=== PATIENT | female | born 1995 | race Caucasian/White ===

== ENCOUNTER → 2020-07-20 14:33 | Outpatient (BNVA) | payer MEDICAID, SELFPAY | PROVIDERS: Visit Provider Obstetrics & Gynecology | DX: R11.0 Nausea (principal) | CPT/HCPCS: 80053; 84443; 84702; 85025 ==

== ENCOUNTER → 2021-05-20 00:01 | Outpatient (BNVA) | payer MEDICAID, SELFPAY | PROVIDERS: PCP Family Medicine; Visit Provider Nurse Practitioner Family | DX: R42 Dizziness and giddiness (principal); E55.9 Vitamin D deficiency, unspecified; D64.9 Anemia, unspecified; R51.9 Headache, unspecified; R55 Syncope and collapse; H53.9 Unspecified visual disturbance; Z79.899 Other long term (current) drug therapy; R53.83 Other fatigue; Z13.6 Encounter for screening for cardiovascular disorders | CPT/HCPCS: 80053; 80061; 81003; 82306; 82607; 82728; 82746; 83036; 83550; 83735; 84439; 84443; 85025 ==

== ENCOUNTER → 2021-12-06 14:45 | Outpatient (BNVA) | payer MEDICAID, SELFPAY | PROVIDERS: PCP Family Medicine; Visit Provider Obstetrics & Gynecology | DX: Z12.4 Encounter for screening for malignant neoplasm of cervix (principal) | CPT/HCPCS: 88175 ==

== ENCOUNTER → 2022-01-06 16:19 | Outpatient (BNVA) | payer MEDICAID, SELFPAY | PROVIDERS: PCP Family Medicine; Visit Provider Nurse Practitioner | DX: N39.0 Urinary tract infection, site not specified (principal); R30.0 Dysuria | CPT/HCPCS: 81000 ==

== ENCOUNTER 2022-03-01 16:16 | Emergency (ER) | payer MEDICAID, SELFPAY ==
[2022-03-01 16:37] VITALS: BP 119/82; PULSE 85; RESP 15; TEMP 36.8; O2SAT 100; BMI 21.4
--- NOTE | 2022-03-01 18:31 | ED_ITS ---
HPI - General: Chief complaint: Vaginal Bleeding Stated complaint: bleeding, preg Time Seen by Provider: 03/01/22 18:25 Source: patient Mode of arrival: ambulatory Limitations: no limitations History of Present Illness: 26-year-old female who states she had a positive 1 week ago states she believes she is roughly 6 weeks states today she has had some vaginal bleeding states been moderate in nature with some abdominal cramping denies passing any clots she has had 1 previous with no difficulties denies any vomiting or diarrhea. Associated symptoms: Deny abdominal pain, headache(s), nausea or vomiting Review of Systems Const: Denies: fever(s), chills, body aches or change in appetite Eyes: Denies: blurry vision or eye discomfort ENMT: Denies: throat pain or dental pain Card: Denies: chest pain Resp: Denies: dyspnea GI: Denies: abdominal pain, nausea, vomiting or diarrhea : Reports: vaginal bleeding Musc: Denies: neck pain or back pain Skin/Breast: Denies: rash Neuro: Denies: headache(s) Psych: Denies: depression Asim/Lymph: Denies: easy bruising All/Imm: Denies: urticaria PFSH ED PFSH: Medical History No pertinent past medical history Denies diabetes, asthma, hypertension, seizures, DVT/PE PCP: None Surgical History No history of previous surgery Family History Denies family history of Colon cancer Ovarian cancer Diabetes Heart disease Hyperlipidemia Breast cancer Hypertension Uterine cancer Thyroid condition Stroke Social History Smoking and tobacco status: never smoked Physical Exam Const: COMMON NORMALS: no acute distress, patient oriented x3 and healthy appearing HENMT: COMMON NORMALS: normocephalic and atraumatic HEAD & SCALP: normocephalic and atraumatic Eye: COMMON NORMALS: Equal, round and reactive pupils present and EOMs intact bilaterally PUPIL: Yes Equal, round and reactive pupils present Neck/C-Spine: COMMON NORMALS: full ROM and supple Chest: COMMONS NORMALS: normal inspection of the chest and normal palpation of entire chest wall Resp: COMMON NORMALS: normal respiratory effort, No retractions, No use of accessory muscles and clear to auscultation bilaterally AUSCULTATION: clear to auscultation bilaterally Cardio: COMMON NORMALS: regular rate, regular rhythm and No murmurs present (Cardio) RATE: regular rate RHYTHM: regular rhythm GI: COMMON NORMALS: Normal to inspection, nondistended, normoactive bowel sounds present, Soft to palpation, non-tender and no masses PALPATION: Yes Soft to palpation Extremity: COMMON NORMALS: normal to inspection and full ROM Neuro: COMMON NORMALS: patient oriented x3, moves all extremities and no focal motor deficits Psych: COMMON NORMALS: mental status grossly normal, Normal thought process present and cooperative THOUGHT PROCESS: Normal thought process present Skin: COMMON NORMALS: no rashes or lesions noted and no wounds GENERAL SKIN EXAM: no rashes or lesions noted Course Vital Signs: Vital signs: Vital Signs Temperature 98.3 F 03/01/22 16:37 Pulse Rate 87 03/01/22 19:33 Respiratory Rate 16 03/01/22 19:33 Blood Pressure 96/79 03/01/22 19:33 Pulse Oximetry 100 03/01/22 19:33 Oxygen Delivery Me thod 03/01/22 19:33 MDM - OB/Uterine Contractions Medical Decision Making Patient presents here with bleeding in early ultrasound did show an IUP her bleeding here is minimal she does have a threatened miscarriage she is stable for discharge she is to follow-up her OB will get her follow-up with Dr. Juarez she is to return if worsening she understands agrees to plan. Lab Data : 03/01/22 17:19 03/01/22 18:57 Radiology Impressions Ultrasound 03/01/22 19:41 IMPRESSION: Single intrauterine without abnormality seen. Laboratory Results WBC 5.9 10^3/uL (4.0-10.0) 03/01/22 17:19 RBC 4.95 10^6/uL (4.1-5.3) 03/01/22 17:19 Hgb 14.9 g/dL (11.5-15.3) 03/01/22 17:19 Hct 45.4 % (37.0-47.0) 03/01/22 17:19 MCV 91.7 fl (81-99) 03/01/22 17:19 MCH 30.1 pg (28.0-34.0) 03/01/22 17:19 MCHC 32.8 g/dL (30.0-36.0) 03/01/22 17:19 RDW 12.8 % (12.1-15.1) 03/01/22 17:19 Plt Count 228 10^3/cmm (130-400) 03/01/22 17:19 MPV 11.0 fL (7.4-10.4) H 03/01/22 17:19 Neut % (Auto) 62.8 % 03/01/22 17:19 Lymph % (Auto) 24.6 % 03/01/22 17:19 [place] % (Auto) 10.1 % 03/01/22 17:19 Eos % (Auto) 1.7 % 03/01/22 17:19 Baso % (Auto) 0.5 % 03/01/22 17:19 Neut # (Auto) 3.67 10^3/uL (1.8-7.7) 03/01/22 17:19 Lymph # (Auto) 1.4 10^3/uL (0.8-4.8) 03/01/22 17:19 [place] # (Auto) 0.6 10^3/uL (0.2-0.9) 03/01/22 17:19 Eos # (Auto) 0.1 10^3/uL (0.0-0.8) 03/01/22 17:19 Baso # (Auto) 0.0 10^3/uL (0.0-0.1) 03/01/22 17:19 Nucleated RBC % (auto) 0 % 03/01/22 17:19 Nucleated RBCs # 0.0 /100WBC 03/01/22 17:19 Sodium 135 mmol/L (136-145) L 03/01/22 18:57 Potassium 3.7 mmol/L (3.5-5.1) 03/01/22 18:57 Chloride 98 mmol/L (98-107) 03/01/22 18:57 Carbon Dioxide 23 mmol/L (22-29) 03/01/22 18:57 Anion Gap 17.7 (5-19) 03/01/22 18:57 BUN 10 mg/dL (6-20) 03/01/22 18:57 Creatinine 0.5 mg/dL (0.5-0.9) 03/01/22 18:57 GFR Calculation 150.3 mL/min (90-130) H 03/01/22 18:57 Glucose 89 mg/dL (65-115) 03/01/22 18:57 Calculated Osmolality 279 mOsm/kg (285-295) L 03/01/22 18:57 Calcium 9.8 mg/dL (8.5-10.5) 03/01/22 18:57 Total Bilirubin 0.2 mg/dL (0.15-1.2) 03/01/22 18:57 AST 17 U/L (0-32) 03/01/22 18:57 ALT 18 U/L (0-33) 03/01/22 18:57 Alkaline Phosphatase 111 U/L (35-105) H 03/01/22 18:57 Total Protein 8.4 g/dL (6.6-8.7) 03/01/22 18:57 Albumin 4.6 g/dL (3.5-5.2) 03/01/22 18:57 Globulin 3.8 g/dL (1.3-4.6) 03/01/22 18:57 HCG, Qual Positive (Negative) H 03/01/22 18:57 Ser , Semi-Qnt 31903.00 mIU/mL 03/01/22 18:27 Discharge Plan Discharge Patient Disposition: Home Clinical Impression: Threatened miscarriage Condition: Stable Prescriptions: No Action prenat.vits,weston,[id number] Tablet 1 tab PO DAILY Qty: 90 3RF nitrofurantoin monohyd/m-cryst [Macrobid] 100 mg capsule 100 mg PO Q12H 7 Days Qty: 14 0RF Rx Instructions: must administer with a meal/food Discharge Orders: Discharge ED (Routine); Ordered 03/01/22 Ordered By: Aureliano Wills Referrals: Jose Luis Milton MD [Primary Care Provider] - Nicolasa Sims MD [Physician] - 1-3 days Discharge Diet: Advance as tolerated Discharge Activity: Resume usual activity Patient Instructions: Threatened Miscarriage (ED) Coding Level of Care Code ED [employer]her for Chg Fwd Exam Comprehensive
[2022-03-01 19:30] LABS: Basophils % 0.5 %; Eosinophils # 0.1 10^3/uL (0.0-0.8); Eosinophils % 1.7 %; Hematocrit 45.4 % (37.0-47.0); Hemoglobin 14.9 g/dL (11.5-15.3); Lymphocytes # 1.4 10^3/uL (0.8-4.8); Lymphocytes % 24.6 %; Mean Corpuscular HGB Conc 32.8 g/dL (30.0-36.0); Mean Corpuscular Hemoglobin 30.1 pg (28.0-34.0); Mean Corpuscular Volume 91.7 fl (81-99); Monocytes # 0.6 10^3/uL (0.2-0.9); Monocytes % 10.1 %; Neutrophils # 3.67 10^3/uL (1.8-7.7); Neutrophils % 62.8 %; Nucleated Red Blood Cells % 0 %; Platelet Count 228 10^3/cmm (130-400); Red Blood Count 4.95 10^6/uL (4.1-5.3); Red Cell Distribution Width 12.8 % (12.1-15.1); White Blood Count 5.9 10^3/uL (4.0-10.0)
[2022-03-01 19:33] VITALS: BP 96/79; PULSE 87; RESP 16; O2SAT 100
[2022-03-01 19:33] LABS: Slide Review Slide Review Perform
[2022-03-01 19:40] LABS: HCG, Serum Qual Positive (Negative)
--- NOTE | 2022-03-01 19:41 | USR_ITS ---
PROCEDURE INFORMATION: Exam: US First Trimester, Transabdominal and US , Transvaginal Exam date and time: 03/01/2022 7:53 PM Age: 26 years old Clinical indication: Lmp or gestational age (in weeks): 5w 6d by lmp; Other: Light vaginal bleeding x 5 hrs; ; Patient HX: Positive qual hcg, quant is pending at end exam; Additional info: Threatened miscarriage LABS AND CLINICAL REPORTS: Last menstrual period start date: 01/19/2022 Gestational age (Established): 5 w 6 d Estimated due date (Established): 10/26/2022 TECHNIQUE: Imaging protocol: Real-time transabdominal obstetrical ultrasound of the maternal pelvis and a first trimester , less than 14 weeks 0 days, with image documentation. Transvaginal imaging was used for better evaluation of the fetus, adnexa, and/or cervix. COMPARISON: No relevant prior studies available. FINDINGS: Gestation: Intrauterine gestation is visualized. pole is visualized. Yolk sac is visualized. Embryonic/ heart rate: 95 bpm Extra-embryonic membranes/Placenta: Unremarkable. No subchorionic bleed. Amniotic fluid: Amniotic fluid and extra-amniotic fluid is normal for gestational age. BIOMETRY: Gestational age (AUA): 6 w 0 d Estimated due date (AUA): 10/25/2022 [place] length (CRL): 3.7 mm. EGA (CRL) is 6 w 0 d MATERNAL: Uterus: Uterus measures 4.3 cm x 6.5 cm x 4 cm. Cervix: Unremarkable. Right ovary/adnexa: Right ovary measures 3.2 cm x 1.4 cm x 2 cm. Right ovarian volume is 4.8 mL. Left ovary/adnexa: Left ovary measures 3.2 cm x 1.4 cm x 2 cm. Left ovary 10 mm probable corpus luteal cyst. Right ovary demonstrates 2 cysts measuring 12 and 6 mm in size, perhaps corpus luteal in nature Intraperitoneal space: No intraperitoneal free fluid. US/US OB <= 14 weeks fetus [id number] IMPRESSION: Single intrauterine without abnormality seen.
[2022-03-01 19:44] LABS: Alanine Aminotransferase 18 U/L (0-33); Albumin Level 4.6 g/dL (3.5-5.2); Alkaline Phosphatase 111 U/L (35-105); Anion Gap 17.7 (5-19); Aspartate Amino Transferase 17 U/L (0-32); Blood Urea Nitrogen 10 mg/dL (6-20); Calcium 9.8 mg/dL (8.5-10.5); Carbon Dioxide 23 mmol/L (22-29); Chloride 98 mmol/L (98-107); Globulin 3.8 g/dL (1.3-4.6); Glomerular Filtration Rate 150.3 mL/min (90-130); Glucose 89 mg/dL (65-115); Osmolality Calculated 279 mOsm/kg (285-295); Potassium 3.7 mmol/L (3.5-5.1); Sodium 135 mmol/L (136-145); Total Bilirubin 0.2 mg/dL (0.15-1.2); Total Protein 8.4 g/dL (6.6-8.7)
--- NOTE | 2022-03-02 08:18 | DCPLANNER ---
Addendum entered by Casandra Rosa 04/12/22 13:06: Patient had a follow up appointment scheduled with [facility] - patient did attend appointment. Addendum entered by Casandra Rosa 03/04/22 13:18: assistant auto center manager received the following message from the [facility] care clinic: Spoke with patient and have her scheduled for another US, per Dr Sims, will schedule OB appointments according to those results, patient aware//JS US is scheduled for Tuesday March 08, 2022 2:30 clinic will call patient with appointment information. Original Note: assistant auto center manager had message to schedule a follow up appointment for patient with [facility]. assistant auto center manager sent patients information to the front office staff at [facility]. Patients information will be printed and reviewed. Clinic will call patient with appointment information.
== END 2022-03-01 21:28 | disposition home or self-care (01) ==
PROVIDERS: Nurse Practitioner Family; Emergency Provider Emergency Medicine; PCP Family Medicine
DX: O20.0 Threatened abortion (principal); Z3A.01 Less than 8 weeks gestation of pregnancy
CPT/HCPCS: 36415; 76801; 80053; 84702; 84703; 85025; 86900; 99284

== ENCOUNTER → 2022-03-22 14:19 | Outpatient (BNVA) | payer MEDICAID, SELFPAY | PROVIDERS: PCP Family Medicine; Visit Provider Nurse Practitioner | DX: N39.0 Urinary tract infection, site not specified (principal) | CPT/HCPCS: 87086 ==

== ENCOUNTER → 2022-04-15 10:30 | Outpatient (BNVA) | payer MEDICAID, SELFPAY | PROVIDERS: PCP Family Medicine; Visit Provider Obstetrics & Gynecology | DX: Z34.90 Encounter for supervision of normal pregnancy, unspecified, unspecified trimester (principal); R06.02 Shortness of breath; R42 Dizziness and giddiness | CPT/HCPCS: 80307; 84315; 84443; 85025; 86592; 86762; 86803; 86850; 86900; 87086; 87340; 87491; 87591; 87661; 87806 ==

== ENCOUNTER 2022-06-30 15:05 | Outpatient (CLI) | payer MEDICAID, SELFPAY ==
--- NOTE | 2022-06-30 15:15 | USCV_ITS ---
Teresa Ashraf Age: 26 Gender: F : 1995 Exam Date: 06/30/2022 15:18 Ordering Phys: Kenneth Avery M.D ([email or web address]) Technologist: Rosalba Ramirez Exam Location: [facility] [place] Indication: Chest pain SOB Rapid heart rate BP: / HR: 89 Rhythm: Sinus Technical Quality: Adequate MEASUREMENTS (Male / Female) Normal Values 2D ECHO LV Diastolic Diameter PLAX 4.2 cm 4.2 - 5.9 / 3.9 - 5.3 cm LV Systolic Diameter PLAX 3.0 cm LV Chamber Size 3.8 cm IVS Diastolic Thickness 0.7 cm 0.6 - 1.0 / 0.6 - 0.9 cm IVS Systolic Thickness 1.1 cm LVPW Diastolic Thickness 0.7 cm 0.6 - 1.0 / 0.6 - 0.9 cm LVPW Systolic Thickness 1.2 cm RV Chamber Size 2.7 cm LVOT Diameter 2.0 cm LV Ejection Fraction 2D Teich 69.5 % LV Ejection Fraction MOD 2C 66.0 % LV Ejection Fraction 2C AL 66.3 % LA Diameter 3.0 cm LA Width 3.1 cm LA Height 4.5 cm RA Width 3.3 cm RA Height 4.1 cm Aorta at Sinotubular Diameter 2.1 cm IVC Diameter 1.5 cm M-MODE Aortic Annulus Diameter 2.2 cm LA Ao Ratio MM 1.5 MV E Point Septal Separation 0.6 cm DOPPLER AV Peak Velocity 152.2 cm/s LVOT Peak Velocity 97.1 cm/s AV Area Cont Eq vti 2.2 cm squared AV Area Cont Eq pk 2.0 cm squared MV Area PHT 4.5 cm squared Mitral E to A Ratio 1.8 MV E' Velocity 66.5 cm/s Mitral E to MV E' Ratio 7.3 Mitral E to LV E' Lateral Ratio 6.2 Mitral E to LV E' Septal Ratio 8.9 TR Peak Velocity 232.0 cm/s TR Peak Gradient 21.5 mmHg TR Mean Velocity 182.5 cm/s TR Mean Gradient 16.0 mmHg TR Velocity Time Integral 67.9 cm TV Peak E Velocity 77.4 cm/s Right Atrial Pressure 3.0 mmHg Pulmonary Artery Systolic Pressu 24.5 mmHg RV Acceleration Time 0.1 s RV Ejection Time 0.4 s RV AcT/ET 0.4 FINDINGS Left Ventricle Left ventricle is normal in size. LV systolic function is normal with EF 55 to 60%. No regional wall motion abnormalities are seen. Right Ventricle Normal in size and function Right Atrium Normal in size Left Atrium Normal in size Mitral Valve Structurally normal mitral valve.Mild mitral regurgitation. Aortic Valve Structurally normal aortic valve. No significant stenosis or regurgitation. Tricuspid Valve Mild tricuspid regurgitation. Pulmonary artery systolic pressure is normal. Pulmonic Valve Not well-visualized Pericardium Normal Aorta Normal in size IVC Appears to be normal CONCLUSIONS LV systolic function is normal with EF of 55-60% Mild mitral regurgitation Mild tricuspid regurgitation No comparison studies are available Kenneth Avery MD (Electronically Signed) Final Date: 03 July 2022 18:12 S
== END 2022-06-30 15:06 | disposition home or self-care (01) ==
PROVIDERS: PCP Family Medicine; Visit Provider Internal Medicine
DX: R06.02 Shortness of breath (principal); R07.9 Chest pain, unspecified; I08.1 Rheumatic disorders of both mitral and tricuspid valves
CPT/HCPCS: 93306

== ENCOUNTER → 2022-07-07 08:20 | Outpatient (BNVA) | payer MEDICAID, SELFPAY | PROVIDERS: PCP Family Medicine; Visit Provider Nurse Practitioner Women's Health | DX: O09.899 Supervision of other high risk pregnancies, unspecified trimester (principal); Z3A.00 Weeks of gestation of pregnancy not specified | CPT/HCPCS: 84315; 87086 ==

== ENCOUNTER → 2022-08-04 13:32 | Outpatient (BNVA) | payer MEDICAID, SELFPAY | PROVIDERS: Visit Provider Obstetrics & Gynecology | DX: O09.899 Supervision of other high risk pregnancies, unspecified trimester (principal); Z3A.00 Weeks of gestation of pregnancy not specified | CPT/HCPCS: 82950; 84315; 85025 ==

== ENCOUNTER → 2022-08-17 14:04 | Outpatient (BNVA) | payer MEDICAID, SELFPAY | PROVIDERS: Visit Provider Obstetrics & Gynecology | DX: O09.899 Supervision of other high risk pregnancies, unspecified trimester (principal) | CPT/HCPCS: 84315; 87086 ==

== ENCOUNTER → 2022-08-31 13:44 | Outpatient (BNVA) | payer MEDICAID, SELFPAY | PROVIDERS: Visit Provider Obstetrics & Gynecology | DX: O09.899 Supervision of other high risk pregnancies, unspecified trimester (principal) | CPT/HCPCS: 84315; 87086 ==

== ENCOUNTER → 2022-09-14 14:17 | Outpatient (BNVA) | payer MEDICAID, SELFPAY | PROVIDERS: Visit Provider Obstetrics & Gynecology | DX: O09.899 Supervision of other high risk pregnancies, unspecified trimester (principal) | CPT/HCPCS: 84315; 85025 ==

== ENCOUNTER → 2022-10-05 13:53 | Outpatient (BNVA) | payer MEDICAID, SELFPAY | PROVIDERS: Visit Provider Obstetrics & Gynecology | DX: O09.899 Supervision of other high risk pregnancies, unspecified trimester (principal) | CPT/HCPCS: 84315; 87086 ==

== ENCOUNTER 2022-10-12 04:16 | Outpatient (CLI) | payer MEDICAID, SELFPAY ==
[2022-10-12 04:16] VITALS: BMI 27.5
[2022-10-12 04:37] VITALS: BP 116/77; PULSE 76
[2022-10-12 05:02] VITALS: RESP 16
[2022-10-12 05:10] LABS: Nitrazine Paper, PH Inconclusive
[2022-10-12 05:15] LABS: Bilirubin Urine Neg (Negative); Blood Urine Neg (Negative); Glucose Urine UA Norm (Normal); Ketones Urine Negative (Negative); Leukocyte Esterase Urine 1+ (Negative); Nitrate Urine Negative (Negative); Protein Urine Neg (Negative); RBC Urine 0-4 /hpf (0-2); Squamous Epithelial Cell Urine 0-4 /hpf (0-5); Urine Appearance Clear (CLEAR); Urine Color Light yellow (Yellow); Urobilinogen Urine Neg (Negative); WBC Urine 0-4 /hpf (0-5); pH Urine 7 (5-7)
[2022-10-12 05:16] LABS: Add Urine Culture? No; Bacteria Urine 1+ /hpf
[2022-10-12 05:25] LABS: Actim Prom Negative
[2022-10-12 06:30] VITALS: BP 122/71; PULSE 72
[2022-10-12 06:40] VITALS: BP 122/71; PULSE 72; RESP 15; TEMP 36.2
== END 2022-10-12 06:42 | disposition home or self-care (01) ==
LOC: OPOB 04:17 → OBGYN 04:19
PROVIDERS: Absent Provider Obstetrics & Gynecology; Visit Provider Obstetrics & Gynecology
DX: O47.9 False labor, unspecified (principal); Z3A.00 Weeks of gestation of pregnancy not specified
CPT/HCPCS: 59025; 81001; 83986; 84112; 84315; 99211

== ENCOUNTER → 2022-10-19 13:57 | Outpatient (BNVA) | payer MEDICAID, SELFPAY | PROVIDERS: Visit Provider Obstetrics & Gynecology | DX: O09.899 Supervision of other high risk pregnancies, unspecified trimester (principal) | CPT/HCPCS: 84315; 87086 ==

== ENCOUNTER 2022-11-03 14:45 | Outpatient (CLI) | payer MEDICAID, SELFPAY ==
[2022-11-03 14:45] VITALS: BMI 30.2
--- NOTE | 2022-11-03 14:53 | US_ITS ---
WS: [id number] ULTRASOUND OB LIMITED TECHNIQUE: Limited ultrasound examination of the fetus. CLINICAL INFORMATION: postdates, [place] COMPARISON: October 05, 2022 FINDINGS: Closed cervix measures 4.3 cm Single interuterine gestation. presentation is cephalic heart rate 133 BPM. Normal [place] 8.5 cm Biophysical profile 8 out of 8. breathin movement: 2 tone: 2 Amniotic fluid: 2 US/US OB BPP wo NST [id number] IMPRESSION: Normal biophysical profile 8 out of 8
[2022-11-03 14:58] VITALS: BP 134/81; PULSE 71; TEMP 36.1
[2022-11-03 15:03] VITALS: RESP 17
[2022-11-03 15:26] VITALS: BP 132/76; PULSE 71
[2022-11-03 15:41] VITALS: BP 128/79; PULSE 86
[2022-11-03 15:56] VITALS: BP 115/66; PULSE 65
== END 2022-11-03 16:12 | disposition home or self-care (01) ==
LOC: OPOB 14:47 → OBGYN 14:50
PROVIDERS: Visit Provider Obstetrics & Gynecology
DX: O48.0 Post-term pregnancy (principal)
CPT/HCPCS: 59025; 76819; 84315; 87086; 99211

== ENCOUNTER 2022-11-06 16:21 | Inpatient (IN) | payer MEDICAID, SELFPAY ==
[2022-11-06] VITALS (17 sets, daily range): BP systolic 124–141; BP diastolic 76–91; PULSE 65–74; RESP 15–16; TEMP 36.4–36.7; BMI 28.5
[2022-11-06 15:27] LABS: Add Urine Microscopic? NO; Charge for UA Resulting for Rev
[2022-11-06 15:38] LABS: Basophils % 0.3 %; Eosinophils # 0.2 10^3/uL (0.0-0.8); Eosinophils % 1.9 %; Hemoglobin 11.8 g/dL (11.5-15.3); Lymphocytes # 1.4 10^3/uL (0.8-4.8); Lymphocytes % 15.3 %; Mean Corpuscular HGB Conc 31.1 g/dL (30.0-36.0); Mean Corpuscular Hemoglobin 26.3 pg (28.0-34.0); Mean Corpuscular Volume 84.6 fl (81-99); Mean Platelet Volume 12.8 fL (7.4-10.4); Monocytes # 0.5 10^3/uL (0.2-0.9); Monocytes % 5.3 %; Neutrophils # 6.85 10^3/uL (1.8-7.7); Neutrophils % 76.6 %; Nucleated Red Blood Cells % 0 %; Platelet Count 202 10^3/cmm (130-400); Red Blood Count 4.49 10^6/uL (4.1-5.3); Red Cell Distribution Width 14.6 % (12.1-15.1); White Blood Count 8.9 10^3/uL (4.0-10.0)
[2022-11-06 15:39] LABS: Bilirubin Urine Neg (Negative); Blood Urine Neg (Negative); Glucose Urine UA Norm (Normal); Ketones Urine Negative (Negative); Leukocyte Esterase Urine Negative (Negative); Nitrate Urine Negative (Negative); Protein Urine Neg (Negative); Urine Appearance Clear (CLEAR); Urine Color Yellow (Yellow); Urobilinogen Urine Norm (Negative); pH Urine 6 (5-7)
[2022-11-06 15:56] LABS: Alanine Aminotransferase 15 U/L (0-33); Albumin Level 3.6 g/dL (3.5-5.2); Alkaline Phosphatase 325 U/L (35-105); Anion Gap 15.5 (5-19); Aspartate Amino Transferase 24 U/L (0-32); Blood Urea Nitrogen 8 mg/dL (6-20); Calcium 8.8 mg/dL (8.5-10.5); Carbon Dioxide 21 mmol/L (22-29); Chloride 98 mmol/L (98-107); Globulin 3.5 g/dL (1.3-4.6); Glomerular Filtration Rate 101.1 mL/min (90-130); Glucose 97 mg/dL (65-115); Osmolality Calculated 270 mOsm/kg (285-295); Potassium 3.5 mmol/L (3.5-5.1); Sodium 131 mmol/L (136-145); Total Bilirubin 0.3 mg/dL (0.15-1.2); Total Protein 7.1 g/dL (6.6-8.7); Uric Acid 6.1 mg/dL (2.4-5.7)
[2022-11-06 16:02] LABS: Urine Creatinine 85 mg/dL (28-217); Urine Protein Random 14 mg/dL
[2022-11-06 16:06] LABS: UPRO/UCREAT Ratio 0.16 mg/mg CR
[2022-11-06] MEDS: dextrose 5%-lactated ringers 1,000 ML 125 ML IV (16:26)
[2022-11-06] MEDS: ampicillin 2,000 MG in sodium chloride 0.9% (plus) 50 ML 100 MG IV (16:26)
[2022-11-06] MEDS: ampicillin 1,000 MG in sodium chloride 0.9% (plus) 50 ML 100 MG IV (20:04)
--- NOTE | 2022-11-06 22:13 | PM.OPHPUD ---
Labor & Delivery H&P Update Date of Procedure: November 06, 2022 Date H&P Performed: 11/03/22 H&P update information: I have reviewed H&P completed within last 30 days, I have examined patient prior to procedure and Changes to prior documentation as noted here Changes to previous documentation: The patient had labile blood pressures today. Her cervix has progressed to 4/80/-1. She lives an hour away and is GBS positive in her urine. She is having irregular contractions and is 41 +4. She will be admitted today for labor augmentation with AROM. Admission Diagnosis: iup@ 41w4d, GBS positive uti in , baby with possible mild arrhythmia during monitoring. Primary indication for procedure: postdates and labile blood pressures
[2022-11-06] MEDS: fentaNYL 50 mcg/mL INJ 2mL IVP (23:50)
[2022-11-07] VITALS (125 sets, daily range): BP systolic 109–188; BP diastolic 58–112; PULSE 57–173; RESP 16–20; TEMP 36.6–39.4; O2SAT 94–100
[2022-11-07] MEDS: ampicillin 1,000 MG in sodium chloride 0.9% (plus) 50 ML 100 MG IV ×3 (00:18→08:06)
[2022-11-07] MEDS: ondansetron 2 mg/ML SDV 2 mL 4 MG IVP (00:37)
[2022-11-07] MEDS: fentaNYL 50 mcg/mL INJ 2mL IVP ×2 (00:56→02:05)
[2022-11-07] MEDS: lactated ringers 1,000 ML 999 ML IV (02:14)
--- NOTE | 2022-11-07 02:52 | P.ANESASSM_ITS ---
Pre-Anesthetic Assessment Height/Weight: Height 1.52 m Weight 66.224 kg Temp Pulse Resp BP Pulse Ox O2 Del Method 97.5 F L 57 L 17 130/82 94 Room Air 11/06/22 22:49 11/07/22 01:32 11/07/22 02:05 11/07/22 01:32 11/07/22 00:33 11/06/22 16:51 Labor epidural Familial anesthetic complications: Never had aneshesia Was Beta Nita taken within 24 hours: N/A Was Clonidine taken within 24 hours: N/A Social No alcohol and No tobacco Exam alert, oriented x 3, clear to auscultation bilaterally and regular rate & rhythm Airway Submandibular: within normal limits Cervical ROM: within normal limits Mallampati: Class II Dentition: chipped and full History/ROS No significant history except as noted and No significant complaints Pulmonary None reported CV/HEM Murmur CONCLUSIONS ?LV systolic function is normal with EF of 55-60% ?Mild mitral regurgitation ?Mild tricuspid regurgitation ?No comparison studies are available Urinary Tract Infection Hepatic None reported GI Gastroesophageal Reflux Disease Metabolic None reported Musc/skel None reported Neuropsych Anxiety Anesthetic Plan ASA status: 2 Anesthesia: Anesthesia Evaluation, General and Regional (specify below) (labor epidural) Risk of > 500 ml blood loss (7ml/kg in children): No Medications/Allergies Home Medications Medication Instructions Recorded Confirmed Last Taken Type prenat.vits,weston,lic-eymg-mirhu 1 tab PO DAILY #90 tabs 12/06/21 11/03/22 Unknown Rx Allergies Allergy/AdvReac Type Severity Reaction Status Date / Time No Known Allergies Allergy Verified 11/03/22 14:19 Current Medications Generic Name Dose Route Start Last Admin Trade Name Freq PRN Reason Stop Dose Admin Fentanyl 25 - 100 mcg 11/06/22 16:13 11/07/22 02:05 Fentanyl 50 Mcg/Ml Inj 2ml IVP 75 mcg Q1H PRN Administration SEVERE PAIN Dextrose/Lactated Ringer's 1,000 mls @ 125 mls/hr 11/06/22 16:15 11/06/22 20:04 Dextrose 5%-Lactated Ringers IV 125 mls/hr .Q8H ZACHARIAH Infusion Ampicillin Sodium 1,000 mg/ 50 mls @ 100 mls/hr 11/06/22 20:15 11/07/22 00:18 Sodium Chloride IV 100 mls/hr Q4H ZACHARIAH Administration Protocol Ondansetron HCl 4 mg 11/06/22 16:13 11/07/22 00:37 Ondansetron 2 Mg/Ml Sdv 2 Ml IVP 4 mg Q4H PRN Administration NAUSEA AND VOMITING PFSH Anesthesia Medical History No pertinent past medical history Denies diabetes, asthma, hypertension, seizures, DVT/PE PCP: None Surgical History No history of previous surgery Family History Denies family history of Colon cancer Ovarian cancer Diabetes Heart disease Hyperlipidemia Breast cancer Hypertension Uterine cancer Thyroid condition Stroke Female Reproductive History : 2 Data Anesthesia 11/06/22 15:20 11/06/22 15:20 Short CBC 11/06/22 Range/Units 15:20 WBC 8.9 (4.0-10.0) 10^3/uL Hgb 11.8 (11.5-15.3) g/dL Hct 38.0 (37.0-47.0) % MCV 84.6 (81-99) fl Plt Count 202 (130-400) 10^3/cmm Neut % (Auto) 76.6 % Neut # (Auto) 6.85 (1.8-7.7) 10^3/uL BMP 11/06/22 15:20 Sodium 131 L Potassium 3.5 Chloride 98 Carbon Dioxide 21 L BUN 8 Creatinine 0.7 Glucose 97 Calcium 8.8 Liver Function 11/06/22 Range/Units 15:20 Total Bilirubin 0.3 (0.15-1.2) mg/dL AST 24 (0-32) U/L ALT 15 (0-33) U/L Alkaline Phosphatase 325 H (35-105) U/L Albumin 3.6 (3.5-5.2) g/dL Urine 11/06/22 Range/Units 15:14 Urine Color Yellow (Yellow) Urine Appearance Clear (CLEAR) Urine pH 6 (5-7) Ur Specific [place] 1.010 (1.005-1.030) Urine Protein Neg (Negative) Urine Glucose (UA) Norm (Normal) Urine Ketones Negative (Negative) Urine Nitrate Negative (Negative) Urine Bilirubin Neg (Negative) Ur Leukocyte Esterase Negative (Negative) Cardiac Studies: Echocardiogram 06/30/22 Cardiac Event Monitor 06/01/22
--- NOTE | 2022-11-07 03:26 | ANES.PROC ---
Anesthesia Procedures Procedure/Date: 11/07/22 Epidural: Time Out Performed: Yes Consents Signed: Procedure Consent and NPO Consent Consent: requested by attending/covering physician, from patient, risks and benefits reviewed and patient agrees to proceed Lumbar Level: L3-L4 Epidural position: sitting Epidural procedure: sterile prep of area (betadine), 1% lidocaine to numb the area (3 mLs), neg for paresthesia, test dose given, 1.5% xylocaine 1:200k epi (3 mL/2 mL), 0.2% Ropivacaine bolus ml (5 mLs), placed PCEA, no systemic response, sterile dressing applied, L.U.D. no apparent complications and 0.2% Ropiavacaine @ mls/hr (10 mLs/hr) Additional Comments: YENNIFER 4cm, catheter placed at 10cm
[2022-11-07] MEDS: dextrose 5%-lactated ringers 1,000 ML 125 ML IV ×2 (09:50→10:34)
--- NOTE | 2022-11-07 10:30 | PC.NURSE ---
Leoncio had a mixture of urine and blood.
[2022-11-07] MEDS: miSOPROStol 200 mcg Tablet 800 MCG PR (10:34)
[2022-11-07] MEDS: lidocaine 2% INJ 20 mL INJECTION (10:34)
--- NOTE | 2022-11-07 10:45 | PC.NURSE ---
Leoncio had a mixture of urine and blood.
--- NOTE | 2022-11-07 11:46 | PM.DELIVERY ---
Delivery Note: Date of delivery: November 07, 2022 Pre-delivery diagnoses: iup@ 40w5d Post-delivery diagnoses: same-delivered Procedure: Delivering Physician: Dr. banks Estimated blood loss (mL): 25 Findings: term male in the cephalic presentation Pre-Delivery Course: The patient presented for a scheduled NST. Her NST looked good, but she had borderline blood pressures. 140/90. She was interested in induction. She was GBS positive from her urine. She was given two doses of ampicillin and AROM of clear fluid was performed. She received an epidural for pain management. She had complete cervical dilation and was allowed to labor down. Delivery: The patient had complete cervical dilation and began to push. The head delivered in the BURT position over an intact perineum under epidural anesthesia. The nose and mouth were bulb suctioned. The shoulders and body delivered atraumatically. The baby was placed onto the mother's abdomen. The cord was clamped and cut. Cord blood was obtained. The placenta was delivered manually due to a velamentous insertion of the cord. It was inspected and found to be intact. Inspection of the perineum revealed a tiny first-degree vaginal laceration which was hemostatic.. Estimated blood loss 25 mL the mother had a small amount of bleeding after the placenta was delivered and she was given 1 dose of TXA and 800 micrograms of Cytotec orally. Apgars on baby were 7 at 1 minute and 9 at 5 minutes. Weight of baby is 9 pounds 7 ounces. Mother and baby were stable post delivery. History History History 2 Term 1 0 Miscarriages/Ectopic 0 Living Children 1 Coding Level of Care Code Acute Code for Chg Fwd Diagnoses
[2022-11-07] MEDS: acetaminophen 325 mg Tablet 650 MG PO (12:02)
[2022-11-07 12:03] LABS: Basophils % 0.2 %; Hemoglobin 9.7 g/dL (11.5-15.3); Lymphocytes # 0.7 10^3/uL (0.8-4.8); Lymphocytes % 4.4 %; Mean Corpuscular HGB Conc 31.3 g/dL (30.0-36.0); Mean Corpuscular Hemoglobin 26.7 pg (28.0-34.0); Mean Corpuscular Volume 85.4 fl (81-99); Mean Platelet Volume 12.5 fL (7.4-10.4); Monocytes # 0.7 10^3/uL (0.2-0.9); Monocytes % 4.1 %; Neutrophils # 15.09 10^3/uL (1.8-7.7); Neutrophils % 90.8 %; Nucleated Red Blood Cells % 0 %; Platelet Count 161 10^3/cmm (130-400); Red Blood Count 3.63 10^6/uL (4.1-5.3); White Blood Count 16.6 10^3/uL (4.0-10.0)
[2022-11-07] MEDS: lactated ringers 1,000 ML 125 ML IV (12:15)
[2022-11-07] MEDS: ibuprofen 800 mg tablet PO ×2 (15:33→20:13)
--- NOTE | 2022-11-07 16:47 | PC.NURSE ---
Ambulated to room with nurse.
[2022-11-07] MEDS: docusate sodium 100 mg Capsule PO (17:59)
[2022-11-08] VITALS: BP 117/73; PULSE 61; RESP 16; TEMP 36.7; O2SAT 98
[2022-11-08 01:15] LABS: Hematocrit 27.1 % (37.0-47.0); Hemoglobin 8.5 g/dL (11.5-15.3); Mean Corpuscular HGB Conc 31.4 g/dL (30.0-36.0); Mean Corpuscular Hemoglobin 26.4 pg (28.0-34.0); Mean Corpuscular Volume 84.2 fl (81-99); Mean Platelet Volume 12.9 fL (7.4-10.4); Platelet Count 150 10^3/cmm (130-400); Red Blood Count 3.22 10^6/uL (4.1-5.3); White Blood Count 13.4 10^3/uL (4.0-10.0)
[2022-11-08 04:00] VITALS: BP 118/78; PULSE 65; RESP 18; O2SAT 98
[2022-11-08] MEDS: prenatal vitamin Capsule 1 CAP PO (08:55)
[2022-11-08] MEDS: docusate sodium 100 mg Capsule PO (08:55)
[2022-11-08] MEDS: ibuprofen 800 mg tablet PO (08:55)
[2022-11-08 09:20] VITALS: BP 127/78; PULSE 71; RESP 14; TEMP 36.6; O2SAT 98
--- NOTE | 2022-11-08 13:38 | P.DS_ITS ---
Discharge Providers Date of Admission: 11/06/22 16:21 Date of Discharge: November 08, 2022 Attending Provider at Admission: Nicolasa Sims MD Attending Provider at Discharge: Nicolasa Sims MD Reason for Visit Reason for Visit: NST Hospital Course Hospital Course The patient was admitted for augmentation of labor due to labile blood pressures and post dates . She had spontaneous delivery of a term male . She did well and was ready for discharge on day #1 Physical Exam Narrative: The patient is doing well this morning. No concerns. Const: COMMON NORMALS: no acute distress, average body habitus, patient o riented x3, no limitations, healthy appearing, alert and well nourished GENERAL APPEARANCE: cooperative, comfortable, well kempt and well developed ORIENTATION/CONSCIOUSNESS: Yes awake, Yes oriented to person, Yes oriented to place and Yes oriented to time Resp: COMMON NORMALS: normal respiratory effort EFFORT & INSPECTION: Yes able to speak in complete sentences GI: COMMON NORMALS: Soft to palpation and non-tender PALPATION: Yes Soft to palpation Extremity: COMMON NORMALS: no calf tenderness Neuro: COMMON NORMALS: patient oriented x3 SENSORIUM/ORIENTATION: Yes alert, Yes oriented to person, Yes oriented to place and Yes oriented to time Psych: APPEARANCE: Yes well kempt Urinary Catheter Management: Thorne: Cath Placed During This Visit: yes, but has since been removed by the nurse Reason for Continuing Indwelling Catheter: Decision to DC Catheter Urinary Catheter Date of Insertion: 11/07/22 Urinary Catheter Time of Insertion: 03:58 Date Urinary Catheter Removed: 11/07/22 Time Urinary Catheter Discontinued: 10:00 Discharge Data Studies Completed and Pending Laboratory Results WBC 13.4 10^3/uL (4.0-10.0) H 11/08/22 00:19 RBC 3.22 10^6/uL (4.1-5.3) L 11/08/22 00:19 Hgb 8.5 g/dL (11.5-15.3) L 11/08/22 00:19 Hct 27.1 % (37.0-47.0) L 11/08/22 00:19 MCV 84.2 fl (81-99) 11/08/22 00:19 MCH 26.4 pg (28.0-34.0) L 11/08/22 00:19 MCHC 31.4 g/dL (30.0-36.0) 11/08/22 00:19 RDW 15.0 % (12.1-15.1) 11/08/22 00:19 Plt Count 150 10^3/cmm (130-400) 11/08/22 00:19 MPV 12.9 fL (7.4-10.4) H 11/08/22 00:19 Neut % (Auto) 90.8 % 11/07/22 11:40 Lymph % (Auto) 4.4 % 11/07/22 11:40 [place] % (Auto) 4.1 % 11/07/22 11:40 Eos % (Auto) 0.0 % 11/07/22 11:40 Baso % (Auto) 0.2 % 11/07/22 11:40 Neut # (Auto) 15.09 10^3/uL (1.8-7.7) H 11/07/22 11:40 Lymph # (Auto) 0.7 10^3/uL (0.8-4.8) L 11/07/22 11:40 [place] # (Auto) 0.7 10^3/uL (0.2-0.9) 11/07/22 11:40 Eos # (Auto) 0.0 10^3/uL (0.0-0.8) 11/07/22 11:40 Baso # (Auto) 0.0 10^3/uL (0.0-0.1) 11/07/22 11:40 Nucleated RBC % (auto) 0 % 11/07/22 11:40 Nucleated RBCs # 0.0 /100WBC 11/07/22 11:40 Sodium 131 mmol/L (136-145) L 11/06/22 15:20 Potassium 3.5 mmol/L (3.5-5.1) 11/06/22 15:20 Chloride 98 mmol/L (98-107) 11/06/22 15:20 Carbon Dioxide 21 mmol/L (22-29) L 11/06/22 15:20 Anion Gap 15.5 (5-19) 11/06/22 15:20 BUN 8 mg/dL (6-20) 11/06/22 15:20 Creatinine 0.7 mg/dL (0.5-0.9) 11/06/22 15:20 GFR Calculation 101.1 mL/min (90-130) 11/06/22 15:20 Glucose 97 mg/dL (65-115) 11/06/22 15:20 Calculated Osmolality 270 mOsm/kg (285-295) L 11/06/22 15:20 Uric Acid 6.1 mg/dL (2.4-5.7) H 11/06/22 15:20 Calcium 8.8 mg/dL (8.5-10.5) 11/06/22 15:20 Total Bilirubin 0.3 mg/dL (0.15-1.2) 11/06/22 15:20 AST 24 U/L (0-32) 11/06/22 15:20 ALT 15 U/L (0-33) 11/06/22 15:20 Alkaline Phosphatase 325 U/L (35-105) H 11/06/22 15:20 Total Protein 7.1 g/dL (6.6-8.7) 11/06/22 15:20 Albumin 3.6 g/dL (3.5-5.2) 11/06/22 15:20 Globulin 3.5 g/dL (1.3-4.6) 11/06/22 15:20 Urine Color Yellow (Yellow) 11/06/22 15:14 Urine Appearance Clear (CLEAR) 11/06/22 15:14 Urine pH 6 (5-7) 11/06/22 15:14 Ur Specific [place] 1.010 (1.005-1.030) 11/06/22 15:14 Urine Protein Neg (Negative) 11/06/22 15:14 Urine Glucose (UA) Norm (Normal) 11/06/22 15:14 Urine Ketones Negative (Negative) 11/06/22 15:14 Urine Blood Neg (Negative) 11/06/22 15:14 Urine Nitrate Negative (Negative) 11/06/22 15:14 Urine Bilirubin Neg (Negative) 11/06/22 15:14 Urine Urobilinogen Norm mg/dL (Negative) 11/06/22 15:14 Ur Leukocyte Esterase Negative (Negative) 11/06/22 15:14 U Random Total Protein 14 mg/dL 11/06/22 15:14 Urine Creatinine 85 mg/dL (28-217) 11/06/22 15:14 Protein/Creatinin Ratio 0.16 mg/mg CR 11/06/22 15:14 Vitals Last Vital Signs Temp 97.8 F 11/08/22 09:20 Pulse 71 11/08/22 09:20 Resp 14 11/08/22 09:20 BP 127/78 11/08/22 09:20 Pulse Ox 98 11/08/22 09:20 O2 Del Method Room Air 11/08/22 09:20 Discharge Plan Discharge Patient Disposition: Home Condition: Stable Prescriptions: Continued prenat.vits,weston,[id number]-[id number] Tablet 1 tab PO DAILY Qty: 90 3RF Discharge Orders: Discharge Order (Routine); Ordered 11/08/22 Ordered By: Nicolasa Sims Patient Instructions: Depression (DC), Bleeding (DC), Preeclampsia and Eclampsia After Delivery (GEN), OB Discharge Report, OB Food/Drug Interaction Guide, Opioid Safety, OB Home Care, OB Vaginal Deliveries - [facility] Discharge Attestations Time Spent in Discharge Care*: less than 30 min Quality Metrics Clinical Quality Measures [ No reported AMI, CVA or VTE this stay] Coding Level of Care Code Acute Code for Chg Fwd Diagnoses
[2022-11-08 15:10] VITALS: BP 124/76; PULSE 99; RESP 14; TEMP 36.8; O2SAT 95
--- NOTE | 2022-11-09 08:00 | ANE.PACU2 ---
Inpatient post-anesthesia follow up: Airway intact: Yes Vital signs: Temperature 98.2 F Pulse Rate 99 Respiratory Rate 14 Blood Pressure 124/76 Pulse Oximetry 95 Oxygen Delivery Me thod Room Air Oxygen Flow Rate Fraction of Inspir ed Oxygen Hydration adequate: Yes Nausea and vomiting: Yes Pain level: 1 Mental status: Baseline
== END 2022-11-08 15:12 | disposition home or self-care (01) | DRG 807 ==
LOC: OPOB 16:21 → OBGYN 16:21
PROVIDERS: Admitting Provider Obstetrics & Gynecology; Visit Provider Obstetrics & Gynecology
DX: O48.0 Post-term pregnancy (principal); Z37.0 Single live birth; Z3A.41 41 weeks gestation of pregnancy; O99.824 Streptococcus B carrier state complicating childbirth
CPT/HCPCS: 36415; 51702; 59025; 59409; 80053; 81003; 82570; 84156; 84550; 85025; 85027; 96374; 96376; 99211; J0290; J2405; J2795; J3010; J7040; J7120; J7121

== ENCOUNTER → 2022-11-22 09:04 | Outpatient (BNVA) | payer MEDICAID, SELFPAY | PROVIDERS: Visit Provider Nurse Practitioner | DX: J32.9 Chronic sinusitis, unspecified (principal) | CPT/HCPCS: 87071; 87880 ==

== ENCOUNTER → 2024-07-02 09:47 | Outpatient (BNVA) | payer BC, SELFPAY | PROVIDERS: PCP Nurse Practitioner Family; Visit Provider Nurse Practitioner Family | DX: Z13.6 Encounter for screening for cardiovascular disorders (principal) | CPT/HCPCS: 80053; 80061; 81003; 82306; 83036; 84443; 85025 ==

== ENCOUNTER 2025-02-11 12:11 | Outpatient (CLI) | payer BC, MEDICAID, SELFPAY ==
--- NOTE | 2025-02-11 12:30 | US_ITS ---
WS: [id number] US pelv w/transvag [id number] HISTORY: R10.20 - Pelvic and perineal pain unspecified side COMPARISON: None available. Uterus: 6.9 cm x 4.6 cm x 3.1 cm. Normal size anteverted uterus. No fibroid or mass. Endometrium: 0.3 cm. Small amount of fluid along the endometrial canal. IUD noted along the endometrial canal in good position. IUD appears to be appropriate in position. Right ovary: 1.8 cm x 2.9 cm x 2.5 cm. Normal size and vascularity, no cystic or solid masses. Several small follicles. No solid mass. Normal vascularity. Left ovary: 2.5 cm x 3.2 cm x 2.8 cm. Normal size and vascularity, no cystic or solid masses. Several small follicles. No solid mass. Normal vascularity. No free fluid in the cul-de-sac. US/US pelv w/transvag [id number] IMPRESSION: 1. Normal positioning of the IUD. 2. There is increased fluid along the endometrial canal surrounding the IUD. N o mass identified. 3. Normal ovaries.
== END 2025-02-11 12:12 | disposition home or self-care (01) ==
LOC: RAD 12:14
PROVIDERS: PCP Nurse Practitioner Family; Visit Provider Nurse Practitioner Women's Health
DX: R10.20 Pelvic and perineal pain unspecified side (principal); R93.89 Abnormal findings on diagnostic imaging of other specified body structures
CPT/HCPCS: 76830; 76856; 87624